=== PATIENT | female | born 1940 | race Caucasian/White ===

== ENCOUNTER → 2016-05-23 | Outpatient (CLI) | payer MEDICARE ==
[~2016-05-23] MED LIST: ASPI81 PO; CALTTAB2 PO; CINNAMON PO; FISH1000 PO; TAB-TAB PO; VITA400C28 PO
[2016-05-23 13:31] LABS: HEMATOCRIT 37.7 % (35.0-46.0); MEAN CELL VOLUME 90.1 FL (80.0-100.0); MEAN CORPUSCULAR HEMOGLOBIN 30.1 PG (27.0-34.0); MEAN CORPUSCULAR HGB CONC 33.4 % (32.0-36.0); PLATELET COUNT 272 TH/MM3 (150-450); RED BLOOD COUNT 4.18 MIL/MM3 (4.00-5.30); REVIEW FLAG FINAL; WHITE BLOOD COUNT 6.5 TH/MM3 (4.0-11.0)
[2016-05-23 14:19] LABS: ALKALINE PHOSPHATASE 81 U/L (45-117); ALT (GPT) 18 U/L (10-53); ANION GAP 9 MEQ/L (5-15); AST (GOT) 13 U/L (15-37); BICARBONATE 28.3 MEQ/L (21.0-32.0); BLOOD UREA NITROGEN 14 MG/DL (7-18); CHLORIDE 105 MEQ/L (98-107); GLOMERULAR FILTRATION RATE 71 ML/MIN (>89); GLUCOSE,FASTING 98 MG/DL (74-99); HDL CHOLESTEROL 48.3 MG/DL (40.0-60.0); LDL CHOLESTEROL 140 MG/DL (0-99); LDL CHOLESTEROL DIRECT 166 MG/DL (0-99); POTASSIUM 4.7 MEQ/L (3.5-5.1); SODIUM (NA) 142 MEQ/L (136-145); TOTAL BILIRUBIN ADULT 0.4 MG/DL (0.2-1.0)
[2016-05-23 15:56] LABS: HEMOGLOBIN A1a 0.6 %; HEMOGLOBIN A1b 1.6 %; HEMOGLOBIN Ao 85.6 %; HEMOGLOBIN LA1C 1.9 %; HEMOGLOBIN P3 3.5 %
== END ==
LOC: PLAB 09:27
PROVIDERS: ATTEND Family Medicine
DX: E78.2 Mixed hyperlipidemia (principal); E03.8 Other specified hypothyroidism; R73.01 Impaired fasting glucose
CPT/HCPCS: 36415; 80053; 80061; 83036; 83721; 84443; 85027

== ENCOUNTER → 2016-11-18 | Outpatient (CLI) | payer MEDICARE ==
[2016-11-18 12:10] LABS: HEMATOCRIT 38.3 % (35.0-46.0); MEAN CELL VOLUME 90.9 FL (80.0-100.0); MEAN CORPUSCULAR HEMOGLOBIN 30.9 PG (27.0-34.0); MEAN CORPUSCULAR HGB CONC 33.9 % (32.0-36.0); PLATELET COUNT 230 TH/MM3 (150-450); RED BLOOD COUNT 4.21 MIL/MM3 (4.00-5.30); RED CELL DISTRIBUTION WIDTH 13.1 % (11.6-17.2); REVIEW FLAG FINAL; WHITE BLOOD COUNT 5.7 TH/MM3 (4.0-11.0)
[2016-11-18 13:04] LABS: ALKALINE PHOSPHATASE 73 U/L (45-117); ALT (GPT) 20 U/L (10-53); HDL CHOLESTEROL 44.5 MG/DL (40.0-60.0); LDL CHOLESTEROL 172 MG/DL (0-99); LDL CHOLESTEROL DIRECT 174 MG/DL (0-99); TOTAL BILIRUBIN ADULT 0.5 MG/DL (0.2-1.0)
[2016-11-18 13:05] LABS: ANION GAP 6 MEQ/L (5-15); BLOOD UREA NITROGEN 14 MG/DL (7-18); CHLORIDE 106 MEQ/L (98-107); GLOMERULAR FILTRATION RATE 69 ML/MIN (>89); GLUCOSE,FASTING 102 MG/DL (74-99); SODIUM (NA) 138 MEQ/L (136-145)
[2016-11-18 13:06] LABS: AST (GOT) 25 U/L (15-37)
[2016-11-18 14:26] LABS: HEMOGLOBIN A1a 1.5 %; HEMOGLOBIN A1b 1.7 %; HEMOGLOBIN Ao 85.2 %; HEMOGLOBIN LA1C 1.9 %; HEMOGLOBIN P3 3.5 %
== END ==
LOC: PLAB 09:40
PROVIDERS: ATTEND Family Medicine
DX: E11.9 Type 2 diabetes mellitus without complications (principal); R73.01 Impaired fasting glucose
CPT/HCPCS: 36415; 80053; 80061; 83036; 83721; 84443; 85027

== ENCOUNTER → 2017-05-13 | Outpatient (CLI) | payer MEDICARE ==
[2017-05-13 13:30] LABS: HEMATOCRIT 37.1 % (35.0-46.0); HEMOGLOBIN 13.2 GM/DL (11.6-15.3); MEAN CELL VOLUME 91.3 FL (80.0-100.0); MEAN CORPUSCULAR HEMOGLOBIN 32.4 PG (27.0-34.0); MEAN CORPUSCULAR HGB CONC 35.5 % (32.0-36.0); MEAN PLATELET VOLUME 9.9 FL (7.0-11.0); PLATELET COUNT 208 TH/MM3 (150-450); RED BLOOD COUNT 4.06 MIL/MM3 (4.00-5.30); RED CELL DISTRIBUTION WIDTH 13.3 % (11.6-17.2); WHITE BLOOD COUNT 5.2 TH/MM3 (4.0-11.0)
[2017-05-13 13:36] LABS: ALBUMIN 4.1 GM/DL (3.4-5.0); AST (GOT) 16 U/L (15-37); BICARBONATE 24.2 MEQ/L (21.0-32.0); BLOOD UREA NITROGEN 15 MG/DL (7-18); CALCIUM 8.9 MG/DL (8.5-10.1); CHLORIDE 105 MEQ/L (98-107); CREATININE 0.83 MG/DL (0.50-1.00); GLOMERULAR FILTRATION RATE 67 ML/MIN (>89); GLUCOSE,FASTING 100 MG/DL (74-99); SODIUM (NA) 138 MEQ/L (136-145)
[2017-05-13 13:37] LABS: CHOLESTEROL 239 MG/DL (120-200)
[2017-05-13 13:41] LABS: ALKALINE PHOSPHATASE 75 U/L (45-117); ALT (GPT) 22 U/L (10-53); CHOLESTEROL/ HDL RATIO 4.38 RATIO; HDL CHOLESTEROL 54.5 MG/DL (40.0-60.0); LDL CHOLESTEROL 156 MG/DL (0-99); LDL CHOLESTEROL DIRECT 168 MG/DL (0-99); TOTAL BILIRUBIN ADULT 0.5 MG/DL (0.2-1.0); TOTAL PROTEIN 7.4 GM/DL (6.4-8.2); TRIGLYCERIDES 143 MG/DL (42-150)
== END ==
LOC: PLAB 10:20
PROVIDERS: ATTEND Family Medicine
DX: E78.4 Other hyperlipidemia (principal); R73.01 Impaired fasting glucose; M85.80 Other specified disorders of bone density and structure, unspecified site; Z68.28 Body mass index [BMI] 28.0-28.9, adult
CPT/HCPCS: 36415; 80053; 80061; 83721; 85027

== ENCOUNTER → 2017-05-21 | Outpatient (CLI) | payer MEDICARE ==
[2017-05-21 18:22] LABS: HEMOGLOBIN A1C 5.7 % (4.3-6.0)
== END ==
LOC: PLAB 09:59
PROVIDERS: ATTEND Family Medicine
DX: R53.83 Other fatigue (principal); R73.01 Impaired fasting glucose; E53.8 Deficiency of other specified B group vitamins; M35.9 Systemic involvement of connective tissue, unspecified
CPT/HCPCS: 36415; 82607; 83036; 84443; 85652